=== PATIENT | male | born 1995 | race Caucasian/White ===

== ENCOUNTER 2016-08-05 13:04 | Emergency (ER) | payer OTHER ==
[~2016-08-05] VITALS: Ht 177.8 cm; Wt 72.7 kg
[~2016-08-05 13:04] MED LIST: NORCO 325 MG-51 TAB PO; PERCOCET 325 MG1 TA2 PO
[2016-08-05 13:11] VITALS: BP 126/77; TEMP 99
[2016-08-05] MEDS ORDERED: CEPHALEXIN500 M1 PO (14:28)
[2016-08-05 14:42] VITALS: PULSE 64
== END 2016-08-05 14:42 | disposition home or self-care (01) ==
LOC: COL.ER 13:04
DX: S71.141A Puncture wound with foreign body, right thigh, initial encounter (principal); W34.00XA Accidental discharge from unspecified firearms or gun, initial encounter